=== PATIENT | female | born 1990 | race Two or more races ===

== ENCOUNTER 2019-02-09 03:46 | Emergency (ER) | payer OTHER ==
[~2019-02-09] VITALS: Ht 167.6 cm; Wt 54.9 kg
[2019-02-09 04:02] VITALS: BP 122/71
--- NOTE | 2019-02-09 04:04 | NUR ---
PT AMBULATORY WITH STEADY GAIT, URINE SAMPLE OBTAINED AND SENT TO LAB.
[2019-02-09 04:17] LABS: APPEARANCE,URINE CLOUDY (CLEAR); BILIRUBIN,URINE 2+ (NEGATIVE); BLOOD, URINE 3+ Ery/uL (NEGATIVE); COLOR,URINE AMBER (YELLOW); KETONES,URINE NEGATIVE (NEGATIVE); LEUKOCYTE ESTERASE ,URINE 2+ (NEGATIVE); NITRITE, URINE POSITIVE (NEGATIVE); PROTEIN,URINE 3+ mg/dl (NEGATIVE); UGLUCOSE NEGATIVE (NEGATIVE)
[2019-02-09 04:32] LABS: BACTERIA,URINE Moderate /HPF (None Seen); RBC,URINE TOO NUMEROUS TO COUN /HPF (0-2); SQUAMOUS EPITHELIAL CELL,UR Few /HPF (None Seen); WBC,URINE 51-80 /HPF (0-3)
== END 2019-02-09 04:34 | disposition home or self-care (01) ==
LOC: ER 03:46
DX: N39.0 Urinary tract infection, site not specified (principal)
CPT/HCPCS: 81000-TC; 84703-TC; 87086-TC; 87186-TC